=== PATIENT | male | born 1980 | race African-American/Black ===

== ENCOUNTER 2019-04-01 17:03 | Emergency (ER) | payer OTHER ==
[~2019-04-01] VITALS: Ht 180.3 cm; Wt 87.0 kg
[~2019-04-01 17:03] MED LIST: ALPR1TAB2 PO
[2019-04-01] MEDS ORDERED: SODIUM CHLORIDE 0.9% 1,000 ML IV ONE (17:33)
[2019-04-01 17:51] LABS: BASOPHILS % 0.9 % (0.0-2.0); EOSINOPHILS % 2.1 % (0.0-5.0); HEMATOCRIT. 43.6 % (42.0-52.0); LYMPHOCYTES % 41.3 % (20.0-50.0); MEAN CORPUSCULAR HEMOGLOBIN 31.1 pg (28.0-32.0); MEAN CORPUSCULAR VOLUME 90.3 fL (80.0-94.0); MEAN PLATELET VOLUME 8.2 fl (7.4-10.4); MONOCYTES % 10.6 % (2.0-8.0); NEUTROPHILS % 45.1 % (40.0-76.0); PLATELET 243 x1000/uL (130-400); RED BLOOD CELL COUNT 4.83 mill/uL (4.7-6.1); RED CELL DISTRIBUTION WIDTH 12.7 % (11.6-14.6)
[2019-04-01 17:56] LABS: CHLORIDE 106 mEq/L (98-107)
[2019-04-01 17:57] LABS: INR 1.1; PROTHROMBIN TIME 11.4 sec (9.6-11.0)
[2019-04-01 18:00] LABS: ETHANOL BLOOD < 10 mg/dL
[2019-04-01] MEDS ORDERED: LORAZEPAM 2MG/ML CPJ IV ONE (18:00)
[2019-04-01] MEDS ORDERED: POTASSIUM CHLORIDE 20MEQ TABLET SR PO NR (18:30)
[2019-04-01 20:12] VITALS: BP 129/78
== END 2019-04-01 20:12 | disposition home or self-care (01) ==
LOC: ER 17:07
DX: F41.0 Panic disorder [episodic paroxysmal anxiety] (principal); E87.6 Hypokalemia
CPT/HCPCS: 36415; 71045; 80053; 80320; 83605; 83735; 83880; 84443; 84484; 85025; 85610; 93005; 96361; 96374; 99284; J2060; J7030; Z7610; G0480